=== PATIENT | male | born 1940 | race Caucasian/White ===

== ENCOUNTER → 2017-01-04 | Outpatient (CLI) | payer OTHER ==
[~2017-01-04] MED LIST: ALBU18 IN; AZI250T PO; BENA20TA PO; NOR5T PO; SIMV-8 PO
[2017-01-04 10:13] LABS: Urine Bilirubin Negative (Negative); Urine Blood Negative /uL (Negative); Urine Color Yellow (Yellow); Urine Glucose Normal (Normal); Urine Ketone Negative (Negative); Urine Nitrite Negative (Negative); Urine Urobilinogen Normal (Negative); Urine pH 5.5 (5.0-8.0)
[2017-01-04 10:17] LABS: Basophils # (auto) 0 uL; Basophils % (auto) 0.5 % (0.0-2.0); Eosinophils # (auto) 0.3 uL; Eosinophils % (auto) 3.5 % (0.0-7.0); Hematocrit 50.7 % (41.0-53.0); Hemoglobin 16.8 g/dL (13.5-17.5); Lymphocytes # (auto) 3.1 uL; Lymphocytes % (auto) 34.2 % (10.0-50.0); Mean Corpuscular Hemoglobin 29.2 pg (28.0-32.0); Mean Corpuscular Hgb Conc. 33.2 g/dL (32.0-36.0); Mean Corpuscular Volume 87.7 fL (80.0-100.0); Mean Platelet Volume 8.6 fL (7.4-10.4); Monocytes # (auto) 0.7 uL; Monocytes % (auto) 8.3 % (0.0-12.0); Neutrophils # (auto) 4.8 uL; Neutrophils % (auto) 53.5 % (37.0-80.0); Platelet Count (auto) 273 10^3/uL (140-450); Red Cell Distribution Width 14.6 % (11.6-16.0)
[2017-01-04 10:43] LABS: Albumin 4.1 g/dL (3.4-5.0); BUN/Creatinine Ratio 15.3; Bilirubin, Total 0.4 mg/dL (0.2-1.0); Calcium 9.2 mg/dL (8.5-10.1); Potassium 4.4 mmol/L (3.5-5.1); Total Protein 7.3 g/dL (6.4-8.2)
== END | disposition home or self-care (01) ==
LOC: LAB 09:14
DX: I10 Essential (primary) hypertension (principal); Z12.5 Encounter for screening for malignant neoplasm of prostate; Z86.010 Personal history of colon polyps
CPT/HCPCS: 36415; 80053; 80061; 81003; 82270; 84153; 84443; 85025

== ENCOUNTER → 2017-07-20 | Outpatient (CLI) | payer OTHER ==
[~2017-07-20] MED LIST changes: +HYDR-4663 PO; -NOR5T PO
[2017-07-20 10:03] LABS: Basophils # (auto) 0 uL; Basophils % (auto) 0.5 % (0.0-2.0); Eosinophils # (auto) 0.2 uL; Eosinophils % (auto) 2.7 % (0.0-7.0); Hematocrit 51.7 % (41.0-53.0); Hemoglobin 17.2 g/dL (13.5-17.5); Lymphocytes # (auto) 2.6 uL; Lymphocytes % (auto) 32.4 % (10.0-50.0); Mean Corpuscular Hgb Conc. 33.2 g/dL (32.0-36.0); Mean Corpuscular Volume 90.3 fL (80.0-100.0); Mean Platelet Volume 8.2 fL (6.9-10.8); Monocytes # (auto) 0.6 uL; Monocytes % (auto) 8.1 % (0.0-12.0); Neutrophils # (auto) 4.4 uL; Neutrophils % (auto) 56.3 % (37.0-80.0); Nucleated Red Blood Cells % 0.1 %; Platelet Count (auto) 214 10^3/uL (140-450); Red Cell Distribution Width 14.2 % (11.8-14.3); White Blood Cell 7.9 10^3/uL (4.4-10.8)
[2017-07-20 10:10] LABS: Urine Bilirubin Negative (Negative); Urine Blood Negative /uL (Negative); Urine Color Yellow (Yellow); Urine Glucose Normal (Normal); Urine Ketone Negative (Negative); Urine Nitrite Negative (Negative); Urine RBC <1 /hpf (0 - 3); Urine Urobilinogen Normal (Negative); Urine pH 5.5 (5.0-8.0)
[2017-07-20 10:39] LABS: Albumin 4.3 g/dL (3.4-5.0); BUN/Creatinine Ratio 16.8; Bilirubin, Total 0.8 mg/dL (0.2-1.0); Calcium 9.6 mg/dL (8.5-10.1); Total Protein 7.7 g/dL (6.4-8.2)
[2017-07-20 10:42] LABS: Vitamin B12 631 pg/mL (211-911)
[2017-07-20 10:49] LABS: Temperature: 21.9 C (20.0-25.0)
== END | disposition home or self-care (01) ==
LOC: LAB 09:28
PROVIDERS: ATTEND Nurse Practitioner
DX: I25.10 Atherosclerotic heart disease of native coronary artery without angina pectoris (principal)
CPT/HCPCS: 36415; 80053; 80061; 81001; 82306; 82607; 82746; 83036; 84443; 85025

== ENCOUNTER → 2018-01-24 | Outpatient (CLI) | payer OTHER ==
[~2018-01-24] MED LIST changes: -AZI250T PO; +AZIT250T8 PO; -HYDR-4663 PO; +HYDR-4683 PO
[2018-01-24 10:53] LABS: Basophils # (auto) 0 uL; Basophils % (auto) 0.6 % (0.0-2.0); Eosinophils # (auto) 0.2 uL; Eosinophils % (auto) 3.2 % (0.0-7.0); Hematocrit 52.5 % (41.0-53.0); Hemoglobin 17.6 g/dL (13.5-17.5); Lymphocytes % (auto) 26.2 % (10.0-50.0); Mean Corpuscular Hgb Conc. 33.4 g/dL (32.0-36.0); Mean Corpuscular Volume 89.6 fL (80.0-100.0); Monocytes # (auto) 0.7 uL; Monocytes % (auto) 8.9 % (0.0-12.0); Neutrophils # (auto) 4.7 uL; Neutrophils % (auto) 61.1 % (37.0-80.0); Nucleated Red Blood Cells % 0.1 %; Platelet Count (auto) 216 10^3/uL (140-450); Red Blood Cells 5.86 10^6/uL (4.5-5.90); Red Cell Distribution Width 14.2 % (11.8-14.3); White Blood Cell 7.6 10^3/uL (4.4-10.8)
[2018-01-24 11:04] LABS: Urine Bacteria NONE SEEN /hpf (None Seen); Urine Blood Negative /uL (Negative); Urine Mucus FEW (None Seen); Urine Specific Gravity 1.011 (1.001-1.035); Urine WBC 1 /hpf (0 - 3)
[2018-01-24 11:16] LABS: Albumin 4.3 g/dL (3.4-5.0); BUN/Creatinine Ratio 11.6; Bilirubin, Total 0.7 mg/dL (0.2-1.0); Potassium 4.4 mmol/L (3.5-5.1); Total Protein 7.6 g/dL (6.4-8.2)
== END | disposition home or self-care (01) ==
LOC: LAB 10:09
PROVIDERS: ATTEND Nurse Practitioner
DX: E78.5 Hyperlipidemia, unspecified (principal); I10 Essential (primary) hypertension
CPT/HCPCS: 36415; 80053; 80061; 81001; 83036; 84443; 85025

== ENCOUNTER → 2018-07-19 | Outpatient (CLI) | payer OTHER ==
[2018-07-19 10:56] LABS: Basophils # (auto) 0 uL; Basophils % (auto) 0.5 % (0.0-2.0); Eosinophils # (auto) 0.2 uL; Eosinophils % (auto) 2.9 % (0.0-7.0); Hematocrit 49.3 % (41.0-53.0); Hemoglobin 16.3 g/dL (13.5-17.5); Lymphocytes # (auto) 2.1 uL; Lymphocytes % (auto) 27.9 % (10.0-50.0); Mean Corpuscular Hemoglobin 29.7 pg (28.0-32.0); Mean Corpuscular Volume 90.1 fL (80.0-100.0); Monocytes # (auto) 0.5 uL; Monocytes % (auto) 7.3 % (0.0-12.0); Neutrophils # (auto) 4.5 uL; Neutrophils % (auto) 61.4 % (37.0-80.0); Platelet Count (auto) 222 10^3/uL (140-450); Red Blood Cells 5.47 10^6/uL (4.5-5.90); Red Cell Distribution Width 14.4 % (11.8-14.3); White Blood Cell 7.4 10^3/uL (4.4-10.8)
[2018-07-19 11:17] LABS: BUN/Creatinine Ratio 14.6; Potassium 4.5 mmol/L (3.5-5.1)
[2018-07-19 11:18] LABS: Bilirubin, Total 0.6 mg/dL (0.2-1.0); Total Protein 7.2 g/dL (6.4-8.2)
== END | disposition home or self-care (01) ==
LOC: LAB 10:17
PROVIDERS: ATTEND Nurse Practitioner
DX: R73.03 Prediabetes (principal); I10 Essential (primary) hypertension; E78.5 Hyperlipidemia, unspecified
CPT/HCPCS: 36415; 80053; 80061; 83036; 85025

== ENCOUNTER → 2019-01-23 | Outpatient (CLI) | payer OTHER ==
[2019-01-23 12:07] LABS: Basophils # (auto) 0 uL; Basophils % (auto) 0.6 % (0.0-2.0); Eosinophils # (auto) 0.3 uL; Eosinophils % (auto) 4.8 % (0.0-7.0); Hematocrit 47.5 % (41.0-53.0); Hemoglobin 15.9 g/dL (13.5-17.5); Lymphocytes # (auto) 1.8 uL; Lymphocytes % (auto) 31.7 % (10.0-50.0); Mean Corpuscular Hemoglobin 30.1 pg (28.0-32.0); Mean Corpuscular Hgb Conc. 33.4 g/dL (32.0-36.0); Mean Corpuscular Volume 90.1 fL (80.0-100.0); Monocytes # (auto) 0.5 uL; Monocytes % (auto) 8.7 % (0.0-12.0); Neutrophils # (auto) 3.1 uL; Neutrophils % (auto) 54.2 % (37.0-80.0); Platelet Count (auto) 188 10^3/uL (140-450); Red Blood Cells 5.28 10^6/uL (4.5-5.90); Red Cell Distribution Width 14.7 % (11.8-14.3); White Blood Cell 5.8 10^3/uL (4.4-10.8)
[2019-01-23 12:34] LABS: Potassium 4.2 mmol/L (3.5-5.1)
[2019-01-23 12:58] LABS: Albumin 3.8 g/dL (3.4-5.0); BUN/Creatinine Ratio 11.4; Bilirubin, Total 0.5 mg/dL (0.2-1.0); Calcium 8.6 mg/dL (8.5-10.1); Total Protein 6.6 g/dL (6.4-8.2)
== END | disposition home or self-care (01) ==
LOC: LAB 10:54
PROVIDERS: ATTEND Nurse Practitioner
DX: E78.5 Hyperlipidemia, unspecified (principal); I10 Essential (primary) hypertension
CPT/HCPCS: 36415; 80053; 80061; 83036; 84153; 84443; 85025

== ENCOUNTER → 2019-05-09 | Outpatient (CLI) | payer OTHER ==
[2019-05-09 11:49] LABS: Basophils # (auto) 0.1 uL; Basophils % (auto) 0.8 % (0.0-2.0); Eosinophils # (auto) 0.2 uL; Eosinophils % (auto) 2.3 % (0.0-7.0); Hematocrit 49.6 % (41.0-53.0); Hemoglobin 16.4 g/dL (13.5-17.5); Lymphocytes # (auto) 2.2 uL; Lymphocytes % (auto) 27.6 % (10.0-50.0); Mean Corpuscular Hemoglobin 30.1 pg (28.0-32.0); Mean Corpuscular Hgb Conc. 33.1 g/dL (32.0-36.0); Mean Corpuscular Volume 91.1 fL (80.0-100.0); Monocytes # (auto) 0.7 uL; Monocytes % (auto) 8.5 % (0.0-12.0); Neutrophils # (auto) 4.8 uL; Neutrophils % (auto) 60.8 % (37.0-80.0); Platelet Count (auto) 226 10^3/uL (140-450); Red Blood Cells 5.44 10^6/uL (4.5-5.90); Red Cell Distribution Width 14.4 % (11.8-14.3); White Blood Cell 7.9 10^3/uL (4.4-10.8)
[2019-05-09 12:19] LABS: Potassium 4.6 mmol/L (3.5-5.1)
[2019-05-09 12:28] LABS: Albumin 4.2 g/dL (3.4-5.0); BUN/Creatinine Ratio 15.2; Bilirubin, Total 0.7 mg/dL (0.2-1.0); Calcium 9.2 mg/dL (8.5-10.1); Total Protein 7.4 g/dL (6.4-8.2)
[2019-05-09 12:32] LABS: Urine Bacteria NONE SEEN /hpf (None Seen); Urine Blood Negative /uL (Negative); Urine Specific Gravity 1.012 (1.001-1.035); Urine WBC 1 /hpf (0 - 3)
== END | disposition home or self-care (01) ==
LOC: LAB 11:34
PROVIDERS: ATTEND Nurse Practitioner
DX: E78.5 Hyperlipidemia, unspecified (principal)
CPT/HCPCS: 36415; 80053; 80061; 81001; 82043; 83036; 85025

== ENCOUNTER → 2019-05-16 | Outpatient (CLI) | payer OTHER | END | disposition home or self-care (01) | LOC: LAB 13:26 | PROVIDERS: ATTEND Nurse Practitioner | DX: E78.5 Hyperlipidemia, unspecified (principal); E11.9 Type 2 diabetes mellitus without complications | CPT/HCPCS: 82270 ==

== ENCOUNTER → 2019-08-22 | Outpatient (CLI) | payer OTHER ==
[~2019-08-22] MED LIST changes: -HYDR-4683 PO; +HYDR-4833 PO
[2019-08-22 11:18] LABS: Basophils # (auto) 0 uL; Basophils % (auto) 0.8 % (0.0-2.0); Eosinophils # (auto) 0.2 uL; Eosinophils % (auto) 2.5 % (0.0-7.0); Hematocrit 50.7 % (41.0-53.0); Hemoglobin 16.6 g/dL (13.5-17.5); Lymphocytes # (auto) 1.5 uL; Lymphocytes % (auto) 24.6 % (10.0-50.0); Mean Corpuscular Hemoglobin 29.7 pg (28.0-32.0); Mean Corpuscular Hgb Conc. 32.8 g/dL (32.0-36.0); Mean Corpuscular Volume 90.4 fL (80.0-100.0); Monocytes # (auto) 0.6 uL; Monocytes % (auto) 9.5 % (0.0-12.0); Neutrophils # (auto) 3.7 uL; Neutrophils % (auto) 62.6 % (37.0-80.0); Nucleated Red Blood Cells % 0.2 %; Platelet Count (auto) 203 10^3/uL (140-450); Red Cell Distribution Width 13.8 % (11.8-14.3); Urine Bacteria NONE SEEN /hpf (None Seen); Urine Blood Negative /uL (Negative); Urine Specific Gravity 1.015 (1.001-1.035); Urine WBC <1 /hpf (0 - 3); White Blood Cell 5.9 10^3/uL (4.4-10.8)
[2019-08-22 12:16] LABS: Albumin 4.2 g/dL (3.4-5.0); Calcium 9.6 mg/dL (8.5-10.1); Potassium 4.2 mmol/L (3.5-5.1)
[2019-08-22 12:21] LABS: BUN/Creatinine Ratio 11.6; Bilirubin, Total 0.8 mg/dL (0.2-1.0); Total Protein 7.2 g/dL (6.4-8.2)
== END | disposition home or self-care (01) ==
LOC: LAB 10:41
PROVIDERS: ATTEND Nurse Practitioner
DX: R73.03 Prediabetes (principal)
CPT/HCPCS: 36415; 80053; 81001; 83036; 85025

== ENCOUNTER → 2019-08-22 | Outpatient (CLI) | payer OTHER | END | disposition home or self-care (01) | LOC: XYW 09:32 | PROVIDERS: ATTEND Internal Medicine | DX: R00.2 Palpitations (principal) | CPT/HCPCS: 93306 ==

== ENCOUNTER → 2019-08-28 | Outpatient (CLI) | payer OTHER ==
[~2019-08-28] VITALS: Ht 167.6 cm; Wt 81.6 kg
[~2019-08-28] MED LIST changes: +ADENOSINE 69 MG in GIVE UN-DILUTED 0 ML IV STA
[2019-08-28 09:17] VITALS: BP 177/82
== END | disposition home or self-care (01) ==
LOC: XY 08:22
PROVIDERS: ATTEND Internal Medicine
DX: R00.2 Palpitations (principal); I10 Essential (primary) hypertension; R07.9 Chest pain, unspecified; J45.909 Unspecified asthma, uncomplicated; I47.1 Supraventricular tachycardia
CPT/HCPCS: 78452; 93017; A9500; J0153

== ENCOUNTER → 2020-07-28 | Outpatient (CLI) | payer OTHER ==
[~2020-07-28] MED LIST changes: -ADENOSINE 69 MG in GIVE UN-DILUTED 0 ML IV STA
[2020-07-28 11:21] LABS: Basophils # (auto) 0 10 ^3/uL (0-0.2); Basophils % (auto) 0.6 % (0.0-2.0); Eosinophils # (auto) 0.1 10 ^3/uL (0-0.8); Eosinophils % (auto) 1.5 % (0.0-7.0); Hematocrit 45.9 % (41.0-53.0); Hemoglobin 15.3 g/dL (13.5-17.5); Lymphocytes # (auto) 1.3 10 ^3/uL (0.4-5.4); Lymphocytes % (auto) 18.8 % (10.0-50.0); Mean Corpuscular Hemoglobin 29.4 pg (28.0-32.0); Mean Corpuscular Hgb Conc. 33.4 g/dL (32.0-36.0); Mean Corpuscular Volume 88.1 fL (80.0-100.0); Monocytes # (auto) 0.6 10 ^3/uL (0-1.3); Monocytes % (auto) 8.2 % (0.0-12.0); Neutrophils # (auto) 4.9 10 ^3/uL (1.6-8.6); Neutrophils % (auto) 70.9 % (37.0-80.0); Nucleated Red Blood Cells % 0.1 %; Platelet Count (auto) 214 10^3/uL (140-450); Red Blood Cells 5.21 10^6/uL (4.5-5.90); Red Cell Distribution Width 14.9 % (11.8-14.3); White Blood Cell 6.8 10^3/uL (4.4-10.8)
[2020-07-28 11:51] LABS: Urine Bacteria MOD /hpf (None Seen); Urine Blood TRACE /uL (Negative); Urine Mucus FEW (None Seen); Urine Specific Gravity 1.023 (1.001-1.035); Urine WBC 32 /hpf (0 - 3)
[2020-07-28 12:12] LABS: Potassium 4.5 mmol/L (3.5-5.1)
[2020-07-28 12:39] LABS: Albumin 3.6 g/dL (3.4-5.0); BUN/Creatinine Ratio 14.6; Bilirubin, Total 0.5 mg/dL (0.2-1.0); Calcium 8.9 mg/dL (8.5-10.1); Total Protein 6.8 g/dL (6.4-8.2)
== END | disposition home or self-care (01) ==
LOC: LAB 10:49
PROVIDERS: ATTEND Nurse Practitioner
DX: I10 Essential (primary) hypertension (principal); E78.5 Hyperlipidemia, unspecified
CPT/HCPCS: 36415; 80053; 80061; 81001; 84443; 85025

== ENCOUNTER → 2020-12-31 | Outpatient (CLI) | payer OTHER | END | disposition home or self-care (01) | LOC: XYW 14:16 | PROVIDERS: ATTEND Internal Medicine | DX: I08.8 Other rheumatic multiple valve diseases (principal); I10 Essential (primary) hypertension | CPT/HCPCS: 93306 ==

== ENCOUNTER → 2021-01-06 | Outpatient (CLI) | payer OTHER | END | disposition home or self-care (01) | LOC: XY 09:40 | PROVIDERS: ATTEND Internal Medicine | DX: I65.23 Occlusion and stenosis of bilateral carotid arteries (principal); R42 Dizziness and giddiness | CPT/HCPCS: 93886 ==

== ENCOUNTER → 2021-02-10 | Outpatient (CLI) | payer OTHER | END | disposition home or self-care (01) | LOC: XYW 09:10 | PROVIDERS: ATTEND Student in an Organized Health Care Education/Training Program | DX: I70.203 Unspecified atherosclerosis of native arteries of extremities, bilateral legs (principal); R29.898 Other symptoms and signs involving the musculoskeletal system | CPT/HCPCS: 93925 ==

== ENCOUNTER 2021-02-16 08:14 | Emergency (ER) | payer OTHER ==
[~2021-02-16] VITALS: Ht 170.2 cm; Wt 70.3 kg
[2021-02-16] MEDS ORDERED: SODIUM CHLORIDE 0.9% 1,000 ML IV ONE (08:45)
[2021-02-16 09:22] VITALS: BP 141/66
[2021-02-16 09:32] LABS: Basophils # (auto) 0 10 ^3/uL (0-0.2); Basophils % (auto) 0.2 % (0.0-2.0); Eosinophils # (auto) 0 10 ^3/uL (0-0.8); Eosinophils % (auto) 0.5 % (0.0-7.0); Hemoglobin 14.7 g/dL (13.5-17.5); Lymphocytes % (auto) 11.3 % (10.0-50.0); Mean Corpuscular Hemoglobin 28.4 pg (28.0-32.0); Mean Corpuscular Hgb Conc. 33.4 g/dL (32.0-36.0); Monocytes # (auto) 0.7 10 ^3/uL (0-1.3); Monocytes % (auto) 8.2 % (0.0-12.0); Neutrophils # (auto) 7.2 10 ^3/uL (1.6-8.6); Neutrophils % (auto) 79.8 % (37.0-80.0); Platelet Count (auto) 271 10^3/uL (140-450); Red Blood Cells 5.17 10^6/uL (4.5-5.90); Red Cell Distribution Width 14.8 % (11.8-14.3)
[2021-02-16 09:44] LABS: Albumin 2.8 g/dL (3.4-5.0); Anion Gap 9 (5-15); Blood Urea Nitrogen 29 mg/dL (7-18); Calcium 8.7 mg/dL (8.5-10.1); Carbon Dioxide 25 mmol/L (21-32); Chloride 106 mmol/L (98-107); Glucose 103 mg/dL (74-106); Potassium 3.4 mmol/L (3.5-5.1); Sodium 140 mmol/L (136-145)
[2021-02-16 09:50] LABS: Alanine Aminotransferase 95 U/L (16-61); Alkaline Phosphatase 90 U/L (45-117); Aspartate Aminotransferase 69 U/L (15-37); BUN/Creatinine Ratio 24.2; Bilirubin, Total 0.7 mg/dL (0.2-1.0); GFR African American 75 mL/min; GFR Non-African American 62 mL/min; Total Protein 6.1 g/dL (6.4-8.2)
[2021-02-16] MEDS ORDERED: levoFLOXacin 250 MG TAB PO ONE (10:30)
[2021-02-16 10:44] LABS: Urine Bacteria NONE SEEN /hpf (None Seen); Urine Blood Negative /uL (Negative); Urine Specific Gravity 1.013 (1.001-1.035); Urine WBC 1 /hpf (0 - 3)
[2021-02-16] MEDS ORDERED: HYDROcodone-ACET 10/325MG TAB PO ONE (10:45)
== END 2021-02-16 10:59 | disposition home or self-care (01) ==
LOC: EDBD 08:14 → ER 08:14
DX: J18.9 Pneumonia, unspecified organism (principal); I48.91 Unspecified atrial fibrillation; M25.551 Pain in right hip; R53.1 Weakness; E44.0 Moderate protein-calorie malnutrition; I10 Essential (primary) hypertension; E86.0 Dehydration; Z68.24 Body mass index [BMI] 24.0-24.9, adult; Z88.0 Allergy status to penicillin; Z79.899 Other long term (current) drug therapy; Z90.89 Acquired absence of other organs
CPT/HCPCS: 36415; 71045; 72192; 80053; 81001; 84484; 85025; 93005; 96360; 99285; J7030

== ENCOUNTER 2021-02-19 09:33 | Emergency (ER) | payer OTHER ==
[~2021-02-19] VITALS: Ht 167.6 cm; Wt 65.3 kg
[2021-02-19] MEDS ORDERED: CYCLOBENZAPRINE HCL 10 MG TAB PO ONE (10:00)
[2021-02-19 11:18] VITALS: BP 140/62
== END 2021-02-19 11:25 | disposition home or self-care (01) ==
LOC: ER 09:33
DX: S83.91XA Sprain of unspecified site of right knee, initial encounter (principal); I10 Essential (primary) hypertension; Z88.0 Allergy status to penicillin; Z87.891 Personal history of nicotine dependence; W01.0XXA Fall on same level from slipping, tripping and stumbling without subsequent striking against object, initial encounter; Y93.89 Activity, other specified; Y92.89 Other specified places as the place of occurrence of the external cause; Y99.8 Other external cause status
CPT/HCPCS: 29505; 73700; 93005

== ENCOUNTER 2021-03-02 12:48 | Inpatient (IN) | payer OTHER ==
[~2021-03-02] VITALS: Ht 167.6 cm; Wt 68.7 kg
[~2021-03-02 12:48] MED LIST changes: -AZIT250T8 PO
[2021-03-02] MEDS ORDERED: methylPREDNISolone SOD SUCC 125 MG/2 ML VL IV ONE (13:00)
[2021-03-02] MEDS ORDERED: FUROSEMIDE 20 MG/2 ML VIAL IV ONE (13:00)
[2021-03-02] MEDS ORDERED: MAGNESIUM SULFATE 1GM/100ML 100 ML IV ONE (13:00)
[2021-03-02 13:59] LABS: Basophils # (auto) 0 10 ^3/uL (0-0.2); Basophils % (auto) 0.3 % (0.0-2.0); Eosinophils # (auto) 0 10 ^3/uL (0-0.8); Eosinophils % (auto) 0.2 % (0.0-7.0); Hematocrit 36.7 % (41.0-53.0); Hemoglobin 11.9 g/dL (13.5-17.5); Lymphocytes # (auto) 0.7 10 ^3/uL (0.4-5.4); Lymphocytes % (auto) 5.3 % (10.0-50.0); Mean Corpuscular Hemoglobin 27.5 pg (28.0-32.0); Mean Corpuscular Hgb Conc. 32.5 g/dL (32.0-36.0); Mean Corpuscular Volume 84.6 fL (80.0-100.0); Monocytes # (auto) 0.8 10 ^3/uL (0-1.3); Monocytes % (auto) 5.4 % (0.0-12.0); Neutrophils # (auto) 12.6 10 ^3/uL (1.6-8.6); Neutrophils % (auto) 88.8 % (37.0-80.0); Platelet Count (auto) 378 10^3/uL (140-450); Red Blood Cells 4.34 10^6/uL (4.5-5.90); Red Cell Distribution Width 15.4 % (11.8-14.3); White Blood Cell 14.1 10^3/uL (4.4-10.8)
[2021-03-02 14:08] LABS: INR 1.12 (0.9-1.15); Partial Thromboplastin Time 26.5 sec (23.0-31.2)
[2021-03-02 14:16] LABS: Anion Gap 8 (5-15); Blood Urea Nitrogen 31 mg/dL (7-18); Calcium 8.1 mg/dL (8.5-10.1); Carbon Dioxide 26 mmol/L (21-32); Chloride 109 mmol/L (98-107); Glucose 108 mg/dL (74-106); Potassium 3.4 mmol/L (3.5-5.1); Sodium 143 mmol/L (136-145)
[2021-03-02 14:22] LABS: Alanine Aminotransferase 55 U/L (16-61); Alkaline Phosphatase 117 U/L (45-117); Aspartate Aminotransferase 72 U/L (15-37); BUN/Creatinine Ratio 24.4; GFR African American 71 mL/min; GFR Non-African American 58 mL/min; Total Protein 5.2 g/dL (6.4-8.2)
[2021-03-02 16:42] LABS: Urine Bacteria NONE SEEN /hpf (None Seen); Urine Blood Negative /uL (Negative); Urine Specific Gravity 1.012 (1.001-1.035); Urine WBC <1 /hpf (0 - 3)
[2021-03-02] MEDS ORDERED: MORPHINE SULF INJ 2 MG/ML SYRINGE 1ML IV PRN (17:30)
[2021-03-02] MEDS ORDERED: NITROGLYCERIN 0.4 MG SL TAB SL PRN (17:30)
[2021-03-02] MEDS ORDERED: ALBUMIN 25% 100 ML IV ONE (19:45)
[2021-03-02] MEDS ORDERED: FUROSEMIDE 40 MG/4 ML VIAL IV ONE (19:45)
[2021-03-02] MEDS ORDERED: VANCOMYCIN PER PHARMACY 0 MG IV SCH (19:45)
[2021-03-02] MEDS ORDERED: PIPERACILLIN-TAZOB 3.375GM 100 ML IV ONE (19:45)
[2021-03-02] MEDS ORDERED: POTASSIUM CHL 20 Meq TABLET PO ONE (19:45)
[2021-03-02] MEDS ORDERED: MEROPENEM 1GM IVPB 100 ML IV SCH (21:00)
[2021-03-02] MEDS ORDERED: VANCOMYCIN 1GM/250ML 250 ML IV ONE (21:15)
[2021-03-02 21:42] VITALS: BP 149/64
[2021-03-02 21:47] VITALS: BP 149/64
[2021-03-03] MEDS ORDERED: PIPERACILLIN-TAZOB 3.375GM 100 ML IV SCH
[2021-03-03] MEDS ORDERED: ONDANSETRON HCL 4 MG/2 ML VIAL IV PRN (01:15)
[2021-03-03] MEDS ORDERED: HYDROcodone-ACET 5/325MG TAB PO PRN (01:15)
[2021-03-03] MEDS ORDERED: LORazepam 0.5 MG TAB PO PRN (01:15)
[2021-03-03] MEDS ORDERED: DOCUSATE SOD 100 MG CAP PO PRN (01:15)
[2021-03-03] MEDS ORDERED: NITROGLYCERIN 0.4 MG SL TAB SL PRN (01:15)
[2021-03-03] MEDS ORDERED: MORPHINE SULF INJ 2 MG/ML SYRINGE 1ML IV PRN ×2 (01:15)
[2021-03-03] MEDS ORDERED: ALUM & MAG HYDROX-SIMETH LIQ(MAALOX) 30 ML PO PRN (01:15)
[2021-03-03] MEDS ORDERED: ACETAMINOPHEN 325 MG TAB PO PRN (01:15)
[2021-03-03] MEDS: IPRATROPIUM BROM 0.5 MG/2.5ML INH SOL NEB SCH ×6 (02:00→22:37)
[2021-03-03 02:51] LABS: Albumin 2.3 g/dL (3.4-5.0); Anion Gap 9 (5-15); Blood Urea Nitrogen 34 mg/dL (7-18); Calcium 7.8 mg/dL (8.5-10.1); Carbon Dioxide 26 mmol/L (21-32); Chloride 107 mmol/L (98-107); Glucose 177 mg/dL (74-106); Magnesium 2.1 mg/dL (1.6-2.6); Potassium 3.3 mmol/L (3.5-5.1); Sodium 142 mmol/L (136-145)
[2021-03-03 02:53] LABS: Alanine Aminotransferase 48 U/L (16-61); Aspartate Aminotransferase 54 U/L (15-37); BUN/Creatinine Ratio 27.2; GFR African American 72 mL/min; GFR Non-African American 59 mL/min
[2021-03-03 02:58] LABS: Alkaline Phosphatase 99 U/L (45-117); Total Protein 5.2 g/dL (6.4-8.2)
[2021-03-03 03:15] LABS: Cholesterol 110 mg/dL (< 200); Triglycerides 150 mg/dL (< 150)
[2021-03-03 03:18] LABS: HDL Cholesterol 12 mg/dL (40-59); LDL Cholesterol 66 mg/dL (< 100)
[2021-03-03 05:00] VITALS: BP 122/58
[2021-03-03] MEDS: SODIUM CHLOR 0.9% PF (SALINE LOCK) 10ML VIAL/SYR IV SCH ×3 (05:30→21:19)
[2021-03-03] MEDS: FUROSEMIDE 20 MG/2 ML VIAL IV SCH ×2 (05:31→17:21)
[2021-03-03] MEDS: methylPREDNISolone SOD SUCC 40 MG/ML VL IV SCH ×3 (05:31→22:22)
[2021-03-03 06:23] LABS: INR 1.09 (0.9-1.15); Partial Thromboplastin Time 29.3 sec (23.0-31.2)
[2021-03-03] MEDS: POTASSIUM CHL 20 Meq TABLET PO SCH (09:15)
[2021-03-03 09:16] VITALS: BP 127/60
[2021-03-03] MEDS: METOPROLOL SUCCINATE XL 50 MG TAB PO SCH (09:16)
[2021-03-03] MEDS: BENAZEPRIL HCL 10 MG TAB PO SCH (09:16)
[2021-03-03] MEDS: ENOXAPARIN SOD 40 MG/0.4 ML SYRINGE SC SCH (09:16)
[2021-03-03] MEDS ORDERED: DOXYCYCLINE 100MG/250ML 250 ML IV SCH (10:00)
[2021-03-03 10:36] LABS: Basophils # (auto) 0 10 ^3/uL (0-0.2); Basophils % (auto) 0.2 % (0.0-2.0); Eosinophils # (auto) 0 10 ^3/uL (0-0.8); Eosinophils % (auto) 0.1 % (0.0-7.0); Hematocrit 34.8 % (41.0-53.0); Hemoglobin 11.2 g/dL (13.5-17.5); Lymphocytes # (auto) 0.6 10 ^3/uL (0.4-5.4); Lymphocytes % (auto) 6.4 % (10.0-50.0); Mean Corpuscular Hemoglobin 27.5 pg (28.0-32.0); Mean Corpuscular Hgb Conc. 32.2 g/dL (32.0-36.0); Mean Corpuscular Volume 85.4 fL (80.0-100.0); Monocytes # (auto) 0.3 10 ^3/uL (0-1.3); Monocytes % (auto) 3.5 % (0.0-12.0); Neutrophils # (auto) 8.2 10 ^3/uL (1.6-8.6); Neutrophils % (auto) 89.8 % (37.0-80.0); Nucleated Red Blood Cells % 0.1 %; Platelet Count (auto) 344 10^3/uL (140-450); Red Blood Cells 4.07 10^6/uL (4.5-5.90); Red Cell Distribution Width 15.9 % (11.8-14.3); White Blood Cell 9.1 10^3/uL (4.4-10.8)
[2021-03-03] MEDS ORDERED: VANCOMYCIN PER PHARMACY 0 MG IV SCH (12:15)
[2021-03-03 12:56] VITALS: BP 112/55
[2021-03-03 14:08] VITALS: BP 112/53
[2021-03-03] MEDS ORDERED: LISI-716 PO (14:17)
[2021-03-03] MEDS ORDERED: METO-289 PO (14:18)
[2021-03-03] MEDS ORDERED: ERGO1CAP12 PO (14:18)
[2021-03-03] MEDS ORDERED: ASCO500T11 PO (14:19)
[2021-03-03] MEDS ORDERED: CYCL-614 PO (14:19)
[2021-03-03] MEDS ORDERED: LEVO-28 PO (14:20)
[2021-03-03] MEDS ORDERED: GLYC1TAB18 PO (14:27)
[2021-03-03] MEDS ORDERED: AMIO200T33 PO (15:23)
[2021-03-03] MEDS ORDERED: LISI20TA28 PO (15:28)
[2021-03-03 16:54] VITALS: BP 123/57
[2021-03-03] MEDS ORDERED: VANCOMYCIN 1GM/250ML 250 ML IV SCH (18:00)
[2021-03-03 22:00] VITALS: BP 127/55
[2021-03-03] MEDS: MEROPENEM 1GM IVPB 100 ML IV SCH (22:21)
[2021-03-03] MEDS: ATORVASTATIN 20 MG TAB PO SCH (22:23)
[2021-03-04] MEDS: IPRATROPIUM BROM 0.5 MG/2.5ML INH SOL NEB SCH ×6 (02:18→22:12)
[2021-03-04 05:00] VITALS: BP 107/47
[2021-03-04 05:35] LABS: Basophils # (auto) 0 10 ^3/uL (0-0.2); Basophils % (auto) 0.1 % (0.0-2.0); Eosinophils # (auto) 0 10 ^3/uL (0-0.8); Hematocrit 35.7 % (41.0-53.0); Hemoglobin 11.5 g/dL (13.5-17.5); Lymphocytes # (auto) 0.6 10 ^3/uL (0.4-5.4); Lymphocytes % (auto) 3.7 % (10.0-50.0); Mean Corpuscular Hemoglobin 27.4 pg (28.0-32.0); Mean Corpuscular Hgb Conc. 32.3 g/dL (32.0-36.0); Mean Corpuscular Volume 84.9 fL (80.0-100.0); Monocytes # (auto) 0.6 10 ^3/uL (0-1.3); Monocytes % (auto) 3.8 % (0.0-12.0); Neutrophils # (auto) 14.5 10 ^3/uL (1.6-8.6); Neutrophils % (auto) 92.4 % (37.0-80.0); Nucleated Red Blood Cells % 0.1 %; Platelet Count (auto) 425 10^3/uL (140-450); Red Blood Cells 4.21 10^6/uL (4.5-5.90); Red Cell Distribution Width 15.3 % (11.8-14.3); White Blood Cell 15.8 10^3/uL (4.4-10.8)
[2021-03-04 05:53] LABS: Calcium 7.7 mg/dL (8.5-10.1); Magnesium 2.5 mg/dL (1.6-2.6)
[2021-03-04 06:02] LABS: BUN/Creatinine Ratio 36.4; CRP High Sensitivity 9.97 mg/dL (< 0.3)
[2021-03-04] MEDS: SODIUM CHLOR 0.9% PF (SALINE LOCK) 10ML VIAL/SYR IV SCH ×3 (06:06→21:51)
[2021-03-04] MEDS: FUROSEMIDE 20 MG/2 ML VIAL IV SCH ×2 (06:06→17:08)
[2021-03-04] MEDS: methylPREDNISolone SOD SUCC 40 MG/ML VL IV SCH ×3 (06:07→21:51)
[2021-03-04 08:20] VITALS: BP 107/47
[2021-03-04 08:52] VITALS: BP 112/53
[2021-03-04] MEDS: MEROPENEM 1GM IVPB 100 ML IV SCH ×2 (09:01→21:50)
[2021-03-04] MEDS: BENAZEPRIL HCL 10 MG TAB PO SCH (09:29)
[2021-03-04] MEDS: POTASSIUM CHL 20 Meq TABLET PO SCH (09:29)
[2021-03-04] MEDS: METOPROLOL SUCCINATE XL 50 MG TAB PO SCH (09:29)
[2021-03-04] MEDS: ENOXAPARIN SOD 40 MG/0.4 ML SYRINGE SC SCH (09:30)
[2021-03-04] MEDS ORDERED: EPINEPHrine HCL 1 MG/1 ML AMP ONE ×2 (10:34→10:40)
[2021-03-04] MEDS ORDERED: SODIUM CHLORIDE LOCK 30 ML ONE (10:34)
[2021-03-04] MEDS ORDERED: LIDOCAINE 2%HCL (LOCAL ANESTH.) INJ 20ML MDV ONE (10:34)
[2021-03-04] MEDS ORDERED: diphenhdrAMINE HCL 50 MG/1 ML VL ONE (10:35)
[2021-03-04] MEDS ORDERED: LIDOCAINE HCL 2% TOP JELLY 5ML TOP ONE (10:35)
[2021-03-04] MEDS ORDERED: LIDOCAINE HCL 2 % INJ 2ML MPF NEB ONE (11:15)
[2021-03-04] MEDS: fentaNYL CITRATE 100 MCG/2 ML VL ONE ×2 (12:37→12:40)
[2021-03-04] MEDS: MIDAZOLAM HCL 5 MG/ML-1ML VIAL ONE ×2 (12:37→12:40)
[2021-03-04] MEDS ORDERED: TRAZ50TA2 PO (12:39)
[2021-03-04] MEDS ORDERED: PRED1PAK8 PO (12:39)
[2021-03-04 12:53] VITALS: BP 112/57
[2021-03-04] MEDS: VANCOMYCIN 1GM/250ML 250 ML IV SCH (14:50)
[2021-03-04 16:56] VITALS: BP 117/53
[2021-03-04 21:45] VITALS: BP 123/56
[2021-03-04] MEDS: ATORVASTATIN 20 MG TAB PO SCH (21:51)
[2021-03-05] MEDS: IPRATROPIUM BROM 0.5 MG/2.5ML INH SOL NEB SCH ×6 (01:57→22:47)
[2021-03-05 05:21] VITALS: BP 114/52
[2021-03-05] MEDS: SODIUM CHLOR 0.9% PF (SALINE LOCK) 10ML VIAL/SYR IV SCH ×3 (06:02→21:45)
[2021-03-05] MEDS: FUROSEMIDE 20 MG/2 ML VIAL IV SCH (06:02)
[2021-03-05] MEDS: methylPREDNISolone SOD SUCC 40 MG/ML VL IV SCH ×3 (06:03→21:45)
[2021-03-05 06:45] LABS: Basophils # (auto) 0 10 ^3/uL (0-0.2); Basophils % (auto) 0.2 % (0.0-2.0); Eosinophils # (auto) 0 10 ^3/uL (0-0.8); Hematocrit 34.3 % (41.0-53.0); Hemoglobin 11.3 g/dL (13.5-17.5); Lymphocytes # (auto) 0.5 10 ^3/uL (0.4-5.4); Lymphocytes % (auto) 3.1 % (10.0-50.0); Mean Corpuscular Hemoglobin 27.8 pg (28.0-32.0); Mean Corpuscular Volume 84.4 fL (80.0-100.0); Monocytes # (auto) 0.9 10 ^3/uL (0-1.3); Neutrophils % (auto) 91.7 % (37.0-80.0); Platelet Count (auto) 393 10^3/uL (140-450); Red Blood Cells 4.06 10^6/uL (4.5-5.90); Red Cell Distribution Width 15.7 % (11.8-14.3); White Blood Cell 17.5 10^3/uL (4.4-10.8)
[2021-03-05 07:02] LABS: Calcium 7.9 mg/dL (8.5-10.1); Potassium 3.9 mmol/L (3.5-5.1)
[2021-03-05 07:05] LABS: BUN/Creatinine Ratio 40.6
[2021-03-05 09:00] VITALS: BP 139/56
[2021-03-05] MEDS: VANCOMYCIN 1GM/250ML 250 ML IV SCH (10:37)
[2021-03-05] MEDS: POTASSIUM CHL 20 Meq TABLET PO SCH (10:38)
[2021-03-05] MEDS: BENAZEPRIL HCL 10 MG TAB PO SCH (10:38)
[2021-03-05] MEDS: ENOXAPARIN SOD 40 MG/0.4 ML SYRINGE SC SCH (10:39)
[2021-03-05] MEDS: METOPROLOL SUCCINATE XL 50 MG TAB PO SCH (10:39)
[2021-03-05] MEDS: MEROPENEM 1GM IVPB 100 ML IV SCH ×2 (11:59→21:45)
[2021-03-05 13:00] VITALS: BP 132/58
[2021-03-05 16:58] VITALS: BP 128/60
[2021-03-05 17:00] LABS: BUN/Creatinine Ratio 39.8; Calcium 7.7 mg/dL (8.5-10.1); Potassium 4.2 mmol/L (3.5-5.1)
[2021-03-05] MEDS: ATORVASTATIN 20 MG TAB PO SCH (21:46)
[2021-03-05 22:31] VITALS: BP 125/57
[2021-03-06] MEDS: IPRATROPIUM BROM 0.5 MG/2.5ML INH SOL NEB SCH ×3 (02:28→11:28)
[2021-03-06] MEDS: VANCOMYCIN 1GM/250ML 250 ML IV SCH (02:58)
[2021-03-06 05:12] VITALS: BP 122/53
[2021-03-06] MEDS: methylPREDNISolone SOD SUCC 40 MG/ML VL IV SCH (06:03)
[2021-03-06] MEDS: SODIUM CHLOR 0.9% PF (SALINE LOCK) 10ML VIAL/SYR IV SCH ×2 (06:03→14:11)
[2021-03-06 09:00] VITALS: BP 127/55
[2021-03-06] MEDS: MEROPENEM 1GM IVPB 100 ML IV SCH (09:37)
[2021-03-06] MEDS: POTASSIUM CHL 20 Meq TABLET PO SCH (09:37)
[2021-03-06] MEDS: METOPROLOL SUCCINATE XL 50 MG TAB PO SCH (09:38)
[2021-03-06] MEDS: BENAZEPRIL HCL 10 MG TAB PO SCH (09:38)
[2021-03-06] MEDS: ENOXAPARIN SOD 40 MG/0.4 ML SYRINGE SC SCH (09:39)
[2021-03-06] MEDS ORDERED: ENOXAPARIN SOD 40 MG/0.4 ML SYRINGE SC SCH (10:00)
[2021-03-06] MEDS ORDERED: FUROSEMIDE 20 MG/2 ML VIAL IV ONE (10:15)
[2021-03-06] MEDS: FLUCONAZOLE 200MG/100ML 100 ML IV SCH ×2 (11:42→12:40)
[2021-03-06 13:00] VITALS: BP 125/60
[2021-03-06 16:34] VITALS: BP 122/62
[2021-03-06 16:52] VITALS: BP 122/62
[2021-03-06 17:00] VITALS: BP 129/63
== END 2021-03-06 17:20 | disposition hospice, home (50) | DRG 871 ==
LOC: ER 12:48 → TELE 17:18 → TELE-WESTW 21:42
PROVIDERS: ADMIT Hospitalist; ATTEND Internal Medicine
PROC: 0B988ZZ Drainage of Left Upper Lobe Bronchus, Via Natural or Artificial Opening Endoscopic (ICD-10-PCS; 2021-03-04)
PROC: 0B958ZZ Drainage of Right Middle Lobe Bronchus, Via Natural or Artificial Opening Endoscopic (ICD-10-PCS; principal; 2021-03-04 12:15)
DX: A41.9 Sepsis, unspecified organism (principal); J12.9 Viral pneumonia, unspecified; J96.01 Acute respiratory failure with hypoxia; E43 Unspecified severe protein-calorie malnutrition; I50.43 Acute on chronic combined systolic (congestive) and diastolic (congestive) heart failure; J15.6 Pneumonia due to other Gram-negative bacteria; J44.0 Chronic obstructive pulmonary disease with (acute) lower respiratory infection; N17.9 Acute kidney failure, unspecified; I11.0 Hypertensive heart disease with heart failure; E87.6 Hypokalemia; I48.0 Paroxysmal atrial fibrillation; M62.84 Sarcopenia; Z66 Do not resuscitate; M54.5 Low back pain; M54.10 Radiculopathy, site unspecified; E78.5 Hyperlipidemia, unspecified; T46.2X5A Adverse effect of other antidysrhythmic drugs, initial encounter; M48.00 Spinal stenosis, site unspecified; Z20.822 Contact with and (suspected) exposure to COVID-19; H91.90 Unspecified hearing loss, unspecified ear; G89.29 Other chronic pain; Z87.891 Personal history of nicotine dependence; Z82.49 Family history of ischemic heart disease and other diseases of the circulatory system; Z80.9 Family history of malignant neoplasm, unspecified; Z90.49 Acquired absence of other specified parts of digestive tract; Y92.89 Other specified places as the place of occurrence of the external cause; Z88.0 Allergy status to penicillin
CPT/HCPCS: 36415; 36600; 70486; 71045; 71250; 80048; 80053; 80061; 80202; 81001; 82306; 82805; 83036; 83735; 83880; 84100; 84443; 84484; 85025; 85610; 85730; 86141; 86738; 87040; 87070; 87077; 87081; 87086; 87205; 87278; 87426; 87804; 93005; 93970; 94640; 96365; 96367; 96375; 97163; G0378; J0171; J1450; J2185; J2250; J3490; P9047

== ENCOUNTER 2021-03-11 08:32 | Inpatient (IN) | payer OTHER ==
[~2021-03-11] VITALS: Ht 167.6 cm; Wt 68.0 kg
[~2021-03-11 08:32] MED LIST changes: -ALBU18 IN; +AMIO200T33 PO; +ASCO500T11 PO; -BENA20TA PO; +CYCL-614 PO; +ERGO1CAP12 PO; +GLYC1TAB18 PO; -HYDR-4833 PO; +LEVO-28 PO; +LISI20TA28 PO; +METO-289 PO; +PRED1PAK8 PO; +TRAZ50TA2 PO
[2021-03-11 13:00] VITALS: BP 113/51
[2021-03-11] MEDS ORDERED: levoFLOXacin 500MG 100 ML IV ONE (13:45)
[2021-03-11] MEDS ORDERED: NITROGLYCERIN 0.4 MG SL TAB SL PRN (13:45)
[2021-03-11] MEDS ORDERED: MORPHINE SULF INJ 2 MG/ML SYRINGE 1ML IV PRN (13:45)
[2021-03-11] MEDS ORDERED: HYDROcodone-ACET 5/325MG TAB PO PRN (14:00)
[2021-03-11] MEDS: SODIUM CHLORIDE 0.9% 1,000 ML IV SCH (14:00)
[2021-03-11 15:26] LABS: Basophils # (auto) 0 10 ^3/uL (0-0.2); Basophils % (auto) 0.2 % (0.0-2.0); Eosinophils # (auto) 0 10 ^3/uL (0-0.8); Hematocrit 31.8 % (41.0-53.0); Hemoglobin 10.9 g/dL (13.5-17.5); Lymphocytes # (auto) 0.6 10 ^3/uL (0.4-5.4); Lymphocytes % (auto) 5.1 % (10.0-50.0); Mean Corpuscular Hemoglobin 28.9 pg (28.0-32.0); Mean Corpuscular Hgb Conc. 34.2 g/dL (32.0-36.0); Mean Corpuscular Volume 84.7 fL (80.0-100.0); Monocytes # (auto) 0.7 10 ^3/uL (0-1.3); Monocytes % (auto) 5.9 % (0.0-12.0); Neutrophils # (auto) 10.2 10 ^3/uL (1.6-8.6); Neutrophils % (auto) 88.8 % (37.0-80.0); Platelet Count (auto) 247 10^3/uL (140-450); Red Blood Cells 3.75 10^6/uL (4.5-5.90); Red Cell Distribution Width 15.6 % (11.8-14.3); White Blood Cell 11.5 10^3/uL (4.4-10.8)
[2021-03-11 15:42] LABS: Albumin 1.7 g/dL (3.4-5.0); Calcium 7.9 mg/dL (8.5-10.1); INR 1.13 (0.9-1.15); Partial Thromboplastin Time 26.4 sec (23.0-31.2); Potassium 4.5 mmol/L (3.5-5.1)
[2021-03-11 15:46] LABS: BUN/Creatinine Ratio 40.6; Bilirubin, Total 0.8 mg/dL (0.2-1.0); Total Protein 4.6 g/dL (6.4-8.2)
[2021-03-11] MEDS ORDERED: MICAFUNGIN SODIUM 100 MG in SODIUM CHL 0.9% 100 ML IV ONE (16:00)
[2021-03-11 17:00] VITALS: BP 110/63
[2021-03-11] MEDS: Ensure HIGH Protein Chocolate 8oz Bottle PO SCH (17:50)
[2021-03-11 20:00] VITALS: BP 107/52
[2021-03-11] MEDS: VORICONAZOLE INJ 200 MG in D5W 5% 250 ML IV SCH (21:28)
[2021-03-11 22:01] VITALS: BP 107/52
[2021-03-11 23:08] LABS: Urine Bacteria FEW /hpf (None Seen); Urine Blood 2+ /uL (Negative); Urine Specific Gravity 1.015 (1.001-1.035); Urine WBC 2 /hpf (0 - 3)
[2021-03-12 04:40] VITALS: BP 124/52
[2021-03-12] MEDS: SODIUM CHLORIDE 0.9% 1,000 ML IV SCH (06:34)
[2021-03-12] MEDS: VORICONAZOLE INJ 200 MG in D5W 5% 250 ML IV SCH (08:00)
[2021-03-12] MEDS: Ensure HIGH Protein Chocolate 8oz Bottle PO SCH ×3 (08:00→18:29)
[2021-03-12 08:57] LABS: Basophils # (auto) 0 10 ^3/uL (0-0.2); Basophils % (auto) 0.1 % (0.0-2.0); Eosinophils # (auto) 0 10 ^3/uL (0-0.8); Eosinophils % (auto) 0.3 % (0.0-7.0); Hematocrit 33.5 % (41.0-53.0); Hemoglobin 11.1 g/dL (13.5-17.5); Lymphocytes # (auto) 0.5 10 ^3/uL (0.4-5.4); Lymphocytes % (auto) 4.6 % (10.0-50.0); Mean Corpuscular Hemoglobin 28.6 pg (28.0-32.0); Mean Corpuscular Volume 86.6 fL (80.0-100.0); Monocytes # (auto) 0.4 10 ^3/uL (0-1.3); Monocytes % (auto) 3.8 % (0.0-12.0); Neutrophils % (auto) 91.2 % (37.0-80.0); Platelet Count (auto) 222 10^3/uL (140-450); Red Blood Cells 3.87 10^6/uL (4.5-5.90); Red Cell Distribution Width 15.8 % (11.8-14.3)
[2021-03-12 09:00] VITALS: BP 114/48
[2021-03-12 09:18] LABS: BUN/Creatinine Ratio 41.5; Calcium 7.8 mg/dL (8.5-10.1)
[2021-03-12] MEDS: MICAFUNGIN SODIUM 100 MG in SODIUM CHL 0.9% 100 ML IV SCH (10:19)
[2021-03-12] MEDS: ASPirin 81 mg TAB PO SCH (10:19)
[2021-03-12] MEDS: SALINE 0.65 % NASAL SPRAY 45ML BOTTLE EACHNOSTRI SCH ×3 (12:30→21:30)
[2021-03-12] MEDS: NYSTATIN (MOUTH-THROAT) 500,000 UNITS/5 ML SUSP MT SCH ×3 (12:30→21:30)
[2021-03-12 13:00] VITALS: BP 117/57
[2021-03-12] MEDS: levoFLOXacin 500MG 100 ML IV SCH (14:08)
[2021-03-12 15:22] LABS: Calcium 7.7 mg/dL (8.5-10.1); Potassium 4.4 mmol/L (3.5-5.1)
[2021-03-12 17:00] VITALS: BP 111/48
[2021-03-12] MEDS: VORICONAZOLE 50 MG TAB PO SCH (21:30)
[2021-03-12 23:04] VITALS: BP 122/53
[2021-03-13] VITALS (7 sets, daily range): BP systolic 110–139; BP diastolic 53–76
[2021-03-13] MEDS: SODIUM CHLORIDE 0.9% 1,000 ML IV SCH ×2 (01:25→15:45)
[2021-03-13 05:16] LABS: Basophils # (auto) 0 10 ^3/uL (0-0.2); Basophils % (auto) 0.3 % (0.0-2.0); Eosinophils # (auto) 0.1 10 ^3/uL (0-0.8); Eosinophils % (auto) 0.9 % (0.0-7.0); Hemoglobin 9.9 g/dL (13.5-17.5); Lymphocytes # (auto) 0.5 10 ^3/uL (0.4-5.4); Lymphocytes % (auto) 5.2 % (10.0-50.0); Mean Corpuscular Hemoglobin 28.3 pg (28.0-32.0); Mean Corpuscular Hgb Conc. 34.2 g/dL (32.0-36.0); Mean Corpuscular Volume 82.9 fL (80.0-100.0); Monocytes # (auto) 0.3 10 ^3/uL (0-1.3); Monocytes % (auto) 3.7 % (0.0-12.0); Neutrophils # (auto) 8.5 10 ^3/uL (1.6-8.6); Neutrophils % (auto) 89.9 % (37.0-80.0); Platelet Count (auto) 209 10^3/uL (140-450); Red Cell Distribution Width 15.2 % (11.8-14.3); White Blood Cell 9.5 10^3/uL (4.4-10.8)
[2021-03-13] MEDS: NYSTATIN (MOUTH-THROAT) 500,000 UNITS/5 ML SUSP MT SCH ×4 (05:17→21:44)
[2021-03-13] MEDS: SALINE 0.65 % NASAL SPRAY 45ML BOTTLE EACHNOSTRI SCH ×4 (05:17→21:44)
[2021-03-13 05:37] LABS: Potassium 4.4 mmol/L (3.5-5.1)
[2021-03-13 05:47] LABS: Albumin 1.4 g/dL (3.4-5.0); BUN/Creatinine Ratio 36.3; Bilirubin, Total 0.5 mg/dL (0.2-1.0); Calcium 7.4 mg/dL (8.5-10.1); Total Protein 4.2 g/dL (6.4-8.2)
[2021-03-13] MEDS: ASPirin 81 mg TAB PO SCH (09:47)
[2021-03-13] MEDS: MICAFUNGIN SODIUM 100 MG in SODIUM CHL 0.9% 100 ML IV SCH (09:48)
[2021-03-13] MEDS: VORICONAZOLE 50 MG TAB PO SCH ×2 (09:48→20:57)
[2021-03-13] MEDS: Ensure HIGH Protein Chocolate 8oz Bottle PO SCH ×3 (09:50→17:48)
[2021-03-13] MEDS: levoFLOXacin 500MG 100 ML IV SCH (13:09)
[2021-03-13] MEDS ORDERED: LACTULOSE 20Gm/30ML SOLN PO ONE (13:30)
[2021-03-13] MEDS: DOCUSATE SOD 100 MG CAP PO SCH ×2 (13:55→21:44)
[2021-03-14 05:00] VITALS: BP 134/63
[2021-03-14] MEDS: NYSTATIN (MOUTH-THROAT) 500,000 UNITS/5 ML SUSP MT SCH ×4 (05:54→21:45)
[2021-03-14] MEDS: SALINE 0.65 % NASAL SPRAY 45ML BOTTLE EACHNOSTRI SCH ×4 (05:54→21:47)
[2021-03-14 06:21] LABS: Potassium 3.8 mmol/L (3.5-5.1)
[2021-03-14 06:32] LABS: Albumin 1.5 g/dL (3.4-5.0); BUN/Creatinine Ratio 35.2; Bilirubin, Total 1.2 mg/dL (0.2-1.0); Calcium 7.7 mg/dL (8.5-10.1); Total Protein 4.5 g/dL (6.4-8.2)
[2021-03-14] MEDS: Ensure HIGH Protein Chocolate 8oz Bottle PO SCH ×3 (08:00→18:00)
[2021-03-14] MEDS: traMADol HCL 50 MG TAB PO PRN ×2 (08:15→17:33)
[2021-03-14 09:00] VITALS: BP 140/63
[2021-03-14] MEDS: DOCUSATE SOD 100 MG CAP PO SCH ×2 (10:40→21:45)
[2021-03-14] MEDS: MICAFUNGIN SODIUM 100 MG in SODIUM CHL 0.9% 100 ML IV SCH (10:41)
[2021-03-14] MEDS: ASPirin 81 mg TAB PO SCH (10:41)
[2021-03-14] MEDS: VORICONAZOLE 50 MG TAB PO SCH ×2 (10:41→20:02)
[2021-03-14] MEDS: SODIUM CHLORIDE 0.9% 1,000 ML IV SCH (10:42)
[2021-03-14 13:00] VITALS: BP 128/61
[2021-03-14] MEDS: levoFLOXacin 500MG 100 ML IV SCH (13:42)
[2021-03-14 16:45] VITALS: BP 132/55
[2021-03-14 22:21] VITALS: BP 126/56
[2021-03-15 04:53] VITALS: BP 128/58
[2021-03-15] MEDS: NYSTATIN (MOUTH-THROAT) 500,000 UNITS/5 ML SUSP MT SCH ×4 (05:30→20:35)
[2021-03-15] MEDS: SALINE 0.65 % NASAL SPRAY 45ML BOTTLE EACHNOSTRI SCH ×4 (05:41→20:35)
[2021-03-15] MEDS: traMADol HCL 50 MG TAB PO PRN (05:41)
[2021-03-15] MEDS: Ensure HIGH Protein Chocolate 8oz Bottle PO SCH ×3 (08:10→18:02)
[2021-03-15 08:30] VITALS: BP 148/62
[2021-03-15] MEDS: DOCUSATE SOD 100 MG CAP PO SCH ×2 (09:32→20:35)
[2021-03-15] MEDS: VORICONAZOLE 50 MG TAB PO SCH ×2 (09:32→20:35)
[2021-03-15] MEDS: ASPirin 81 mg TAB PO SCH (09:32)
[2021-03-15] MEDS: MICAFUNGIN SODIUM 100 MG in SODIUM CHL 0.9% 100 ML IV SCH (10:54)
[2021-03-15 12:30] VITALS: BP 121/57
[2021-03-15] MEDS: levoFLOXacin 500MG 100 ML IV SCH (15:29)
[2021-03-15 16:57] VITALS: BP 123/59
[2021-03-15 21:32] VITALS: BP 122/51
[2021-03-15] MEDS: ALBUTEROL SULF 2.5 MG/0.5ML(0.5%) NEB SOLN NEB PRN (23:42)
[2021-03-16 01:18] VITALS: BP 122/51
[2021-03-16] MEDS: ONDANSETRON HCL 4 MG/2 ML VIAL IV PRN ×2 (03:27→09:37)
[2021-03-16] MEDS: NYSTATIN (MOUTH-THROAT) 500,000 UNITS/5 ML SUSP MT SCH ×4 (05:13→20:34)
[2021-03-16] MEDS: SALINE 0.65 % NASAL SPRAY 45ML BOTTLE EACHNOSTRI SCH ×4 (05:13→20:33)
[2021-03-16 05:20] VITALS: BP 136/56
[2021-03-16 06:06] LABS: Basophils # (auto) 0 10 ^3/uL (0-0.2); Basophils % (auto) 0.3 % (0.0-2.0); Eosinophils # (auto) 0 10 ^3/uL (0-0.8); Eosinophils % (auto) 0.3 % (0.0-7.0); Hematocrit 29.6 % (41.0-53.0); Lymphocytes # (auto) 0.6 10 ^3/uL (0.4-5.4); Lymphocytes % (auto) 4.1 % (10.0-50.0); Mean Corpuscular Hemoglobin 27.6 pg (28.0-32.0); Mean Corpuscular Hgb Conc. 33.7 g/dL (32.0-36.0); Mean Corpuscular Volume 81.8 fL (80.0-100.0); Monocytes # (auto) 0.6 10 ^3/uL (0-1.3); Monocytes % (auto) 4.6 % (0.0-12.0); Neutrophils # (auto) 12.6 10 ^3/uL (1.6-8.6); Neutrophils % (auto) 90.7 % (37.0-80.0); Nucleated Red Blood Cells % 0.1 %; Platelet Count (auto) 240 10^3/uL (140-450); Red Blood Cells 3.62 10^6/uL (4.5-5.90); Red Cell Distribution Width 15.6 % (11.8-14.3); White Blood Cell 13.9 10^3/uL (4.4-10.8)
[2021-03-16 06:25] LABS: Potassium 4.3 mmol/L (3.5-5.1)
[2021-03-16 06:34] LABS: Albumin 1.4 g/dL (3.4-5.0); BUN/Creatinine Ratio 32.1; Calcium 7.7 mg/dL (8.5-10.1); Total Protein 4.6 g/dL (6.4-8.2)
[2021-03-16 08:25] VITALS: BP 122/56
[2021-03-16] MEDS: Ensure HIGH Protein Chocolate 8oz Bottle PO SCH ×3 (09:29→17:26)
[2021-03-16] MEDS: VORICONAZOLE 50 MG TAB PO SCH ×2 (09:29→20:35)
[2021-03-16] MEDS: DOCUSATE SOD 100 MG CAP PO SCH ×2 (09:30→20:34)
[2021-03-16] MEDS: MICAFUNGIN SODIUM 100 MG in SODIUM CHL 0.9% 100 ML IV SCH (09:30)
[2021-03-16] MEDS: ASPirin 81 mg TAB PO SCH (09:30)
[2021-03-16] MEDS: ALBUTEROL SULF 2.5 MG/0.5ML(0.5%) NEB SOLN NEB PRN ×2 (12:12→18:41)
[2021-03-16] MEDS ORDERED: LACTULOSE 20Gm/30ML SOLN PO PRN (12:15)
[2021-03-16] MEDS ORDERED: methylPREDNISolone SOD SUCC 40 MG/ML VL IV ONE (12:15)
[2021-03-16] MEDS ORDERED: LACTULOSE 20Gm/30ML SOLN PO ONE (12:15)
[2021-03-16 12:30] VITALS: BP 119/54
[2021-03-16] MEDS ORDERED: PANTOPRAZOLE 40 MG/10 ML VIAL INJ IV ONE (12:30)
[2021-03-16] MEDS: levoFLOXacin 500MG 100 ML IV SCH (13:21)
[2021-03-16 17:20] VITALS: BP 133/61
[2021-03-16] MEDS: ACYCLOVIR SOD 50MG/ML 500 MG in D5W 5% 100 ML IV SCH ×2 (17:25→21:47)
[2021-03-16] MEDS: methylPREDNISolone SOD SUCC 40 MG/ML VL IV SCH (20:34)
[2021-03-16 22:00] VITALS: BP_SYST 114; BP_SYST 119; BP_DIAS 63; BP_DIAS 73
[2021-03-17] MEDS: ACYCLOVIR SOD 50MG/ML 500 MG in D5W 5% 100 ML IV SCH ×3 (04:44→20:30)
[2021-03-17] MEDS: NYSTATIN (MOUTH-THROAT) 500,000 UNITS/5 ML SUSP MT SCH ×4 (04:45→20:30)
[2021-03-17] MEDS: SALINE 0.65 % NASAL SPRAY 45ML BOTTLE EACHNOSTRI SCH ×4 (04:45→20:29)
[2021-03-17 05:00] VITALS: BP 137/65
[2021-03-17 08:40] VITALS: BP 123/55
[2021-03-17] MEDS: MICAFUNGIN SODIUM 100 MG in SODIUM CHL 0.9% 100 ML IV SCH (09:25)
[2021-03-17] MEDS: ASPirin 81 mg TAB PO SCH (09:26)
[2021-03-17] MEDS: PANTOPRAZOLE 40 MG/10 ML VIAL INJ IV SCH (09:26)
[2021-03-17] MEDS: methylPREDNISolone SOD SUCC 40 MG/ML VL IV SCH ×2 (09:26→20:29)
[2021-03-17] MEDS: DOCUSATE SOD 100 MG CAP PO SCH ×2 (09:26→20:30)
[2021-03-17] MEDS: VORICONAZOLE 50 MG TAB PO SCH (09:26)
[2021-03-17] MEDS: Ensure HIGH Protein Chocolate 8oz Bottle PO SCH ×3 (09:26→18:00)
[2021-03-17] MEDS: levoFLOXacin 500MG 100 ML IV SCH (12:36)
[2021-03-17 12:38] VITALS: BP 126/55
[2021-03-17 16:36] VITALS: BP 112/50
[2021-03-17] MEDS: SUCRALFATE 1 GM/10 ML ORAL SUSP PO SCH (18:02)
[2021-03-17 22:00] VITALS: BP 129/59
[2021-03-17] MEDS: traMADol HCL 50 MG TAB PO PRN (23:33)
[2021-03-18] MEDS: SALINE 0.65 % NASAL SPRAY 45ML BOTTLE EACHNOSTRI SCH ×4 (04:38→22:14)
[2021-03-18] MEDS: NYSTATIN (MOUTH-THROAT) 500,000 UNITS/5 ML SUSP MT SCH ×4 (04:38→22:14)
[2021-03-18] MEDS: SUCRALFATE 1 GM/10 ML ORAL SUSP PO SCH ×3 (04:38→18:15)
[2021-03-18] MEDS: methylPREDNISolone SOD SUCC 40 MG/ML VL IV SCH ×2 (04:38→22:14)
[2021-03-18] MEDS: ACYCLOVIR SOD 50MG/ML 500 MG in D5W 5% 100 ML IV SCH ×3 (04:39→22:15)
[2021-03-18 05:00] VITALS: BP 142/58
[2021-03-18] MEDS: ALBUTEROL SULF 2.5 MG/0.5ML(0.5%) NEB SOLN NEB PRN (06:28)
[2021-03-18 06:50] LABS: Basophils # (auto) 0.1 10 ^3/uL (0-0.2); Basophils % (auto) 0.3 % (0.0-2.0); Eosinophils # (auto) 0 10 ^3/uL (0-0.8); Hematocrit 29.1 % (41.0-53.0); Hemoglobin 9.8 g/dL (13.5-17.5); Lymphocytes # (auto) 0.5 10 ^3/uL (0.4-5.4); Lymphocytes % (auto) 2.8 % (10.0-50.0); Mean Corpuscular Hemoglobin 27.3 pg (28.0-32.0); Mean Corpuscular Hgb Conc. 33.9 g/dL (32.0-36.0); Mean Corpuscular Volume 80.7 fL (80.0-100.0); Monocytes # (auto) 0.5 10 ^3/uL (0-1.3); Monocytes % (auto) 2.8 % (0.0-12.0); Neutrophils # (auto) 18.3 10 ^3/uL (1.6-8.6); Neutrophils % (auto) 94.1 % (37.0-80.0); Platelet Count (auto) 277 10^3/uL (140-450); Red Cell Distribution Width 15.5 % (11.8-14.3); White Blood Cell 19.4 10^3/uL (4.4-10.8)
[2021-03-18 07:04] LABS: Calcium 7.7 mg/dL (8.5-10.1); Potassium 4.3 mmol/L (3.5-5.1)
[2021-03-18 07:11] LABS: Albumin 1.6 g/dL (3.4-5.0); BUN/Creatinine Ratio 32.4; Bilirubin, Total 0.9 mg/dL (0.2-1.0); Total Protein 4.7 g/dL (6.4-8.2)
[2021-03-18 08:00] VITALS: BP 135/62
[2021-03-18] MEDS: Ensure HIGH Protein Chocolate 8oz Bottle PO SCH ×3 (08:00→18:17)
[2021-03-18 08:16] VITALS: BP 144/81
[2021-03-18] MEDS: ASPirin 81 mg TAB PO SCH (10:13)
[2021-03-18] MEDS: DOCUSATE SOD 100 MG CAP PO SCH ×2 (10:13→22:13)
[2021-03-18] MEDS: PANTOPRAZOLE 40 MG/10 ML VIAL INJ IV SCH (10:13)
[2021-03-18] MEDS: MICAFUNGIN SODIUM 100 MG in SODIUM CHL 0.9% 100 ML IV SCH (10:13)
[2021-03-18 12:38] VITALS: BP 122/58
[2021-03-18] MEDS: levoFLOXacin 500MG 100 ML IV SCH (12:41)
[2021-03-18 16:26] VITALS: BP 146/72
[2021-03-18 22:00] VITALS: BP 141/65
[2021-03-19 00:56] VITALS: BP 141/65
[2021-03-19 05:00] VITALS: BP 136/71
[2021-03-19] MEDS: NYSTATIN (MOUTH-THROAT) 500,000 UNITS/5 ML SUSP MT SCH ×4 (06:17→22:33)
[2021-03-19] MEDS: SALINE 0.65 % NASAL SPRAY 45ML BOTTLE EACHNOSTRI SCH ×4 (06:17→22:32)
[2021-03-19] MEDS: SUCRALFATE 1 GM/10 ML ORAL SUSP PO SCH ×3 (06:17→18:54)
[2021-03-19] MEDS: ACYCLOVIR SOD 50MG/ML 500 MG in D5W 5% 100 ML IV SCH ×3 (06:17→22:33)
[2021-03-19 08:00] VITALS: BP 128/58
[2021-03-19] MEDS: Ensure HIGH Protein Chocolate 8oz Bottle PO SCH ×3 (08:00→18:00)
[2021-03-19] MEDS: DOCUSATE SOD 100 MG CAP PO SCH ×2 (09:58→22:33)
[2021-03-19] MEDS: PANTOPRAZOLE 40 MG/10 ML VIAL INJ IV SCH (09:58)
[2021-03-19] MEDS: MICAFUNGIN SODIUM 100 MG in SODIUM CHL 0.9% 100 ML IV SCH (09:58)
[2021-03-19] MEDS: methylPREDNISolone SOD SUCC 40 MG/ML VL IV SCH ×2 (09:58→22:33)
[2021-03-19] MEDS: ASPirin 81 mg TAB PO SCH (09:58)
[2021-03-19] MEDS ORDERED: POTASSIUM EFFERVESENT TAB 25 MEQ PO ONE (12:00)
[2021-03-19] MEDS ORDERED: FUROSEMIDE 20 MG/2 ML VIAL IV ONE (12:00)
[2021-03-19] MEDS: levoFLOXacin 500MG 100 ML IV SCH (12:14)
[2021-03-19 12:22] VITALS: BP 127/61
[2021-03-19 17:20] VITALS: BP 140/71
[2021-03-19 22:00] VITALS: BP 157/69
[2021-03-20 05:00] VITALS: BP 101/57
[2021-03-20 05:28] VITALS: BP 101/51
[2021-03-20] MEDS: SUCRALFATE 1 GM/10 ML ORAL SUSP PO SCH ×3 (06:13→18:00)
[2021-03-20] MEDS: NYSTATIN (MOUTH-THROAT) 500,000 UNITS/5 ML SUSP MT SCH ×4 (06:13→23:30)
[2021-03-20] MEDS: ACYCLOVIR SOD 50MG/ML 500 MG in D5W 5% 100 ML IV SCH ×3 (06:13→23:30)
[2021-03-20] MEDS: SALINE 0.65 % NASAL SPRAY 45ML BOTTLE EACHNOSTRI SCH ×4 (06:13→23:29)
[2021-03-20] MEDS: ALBUTEROL SULF 2.5 MG/0.5ML(0.5%) NEB SOLN NEB PRN (07:30)
[2021-03-20 09:00] VITALS: BP 105/42
[2021-03-20] MEDS: MICAFUNGIN SODIUM 100 MG in SODIUM CHL 0.9% 100 ML IV SCH (09:13)
[2021-03-20] MEDS: Ensure HIGH Protein Chocolate 8oz Bottle PO SCH ×3 (09:15→18:00)
[2021-03-20] MEDS: DOCUSATE SOD 100 MG CAP PO SCH ×2 (09:45→23:30)
[2021-03-20] MEDS: PANTOPRAZOLE 40 MG/10 ML VIAL INJ IV SCH (09:45)
[2021-03-20] MEDS: ASPirin 81 mg TAB PO SCH (09:45)
[2021-03-20] MEDS: methylPREDNISolone SOD SUCC 40 MG/ML VL IV SCH (09:45)
[2021-03-20] MEDS: levoFLOXacin 500MG 100 ML IV SCH (12:00)
[2021-03-20 13:00] VITALS: BP 126/54
[2021-03-20] MEDS ORDERED: cefTAZidime 1 GM in SODIUM CHL 0.9% 50 ML IV ONE (14:30)
[2021-03-20 17:00] VITALS: BP 125/51
[2021-03-20 20:37] LABS: % Iron Saturation 23.5 % (20-55)
[2021-03-20 22:40] VITALS: BP 119/39
[2021-03-20] MEDS: cefTAZidime 1 GM in SODIUM CHL 0.9% 50 ML IV SCH (23:29)
[2021-03-20] MEDS: LINEZOLID 600MG/300ML 300 ML IV SCH (23:30)
[2021-03-21] MEDS: traMADol HCL 50 MG TAB PO PRN (05:15)
[2021-03-21 05:26] VITALS: BP 127/56
[2021-03-21] MEDS: SALINE 0.65 % NASAL SPRAY 45ML BOTTLE EACHNOSTRI SCH ×4 (05:43→22:36)
[2021-03-21] MEDS: cefTAZidime 1 GM in SODIUM CHL 0.9% 50 ML IV SCH ×3 (05:43→22:36)
[2021-03-21] MEDS: NYSTATIN (MOUTH-THROAT) 500,000 UNITS/5 ML SUSP MT SCH ×4 (05:44→22:38)
[2021-03-21] MEDS: ACYCLOVIR SOD 50MG/ML 500 MG in D5W 5% 100 ML IV SCH ×3 (05:44→22:37)
[2021-03-21 05:51] LABS: Basophils # (auto) 0 10 ^3/uL (0-0.2); Eosinophils # (auto) 0 10 ^3/uL (0-0.8); Hematocrit 26.3 % (41.0-53.0); Hemoglobin 8.9 g/dL (13.5-17.5); Lymphocytes % (auto) 4.6 % (10.0-50.0); Mean Corpuscular Hemoglobin 27.3 pg (28.0-32.0); Mean Corpuscular Hgb Conc. 33.7 g/dL (32.0-36.0); Mean Corpuscular Volume 80.8 fL (80.0-100.0); Monocytes # (auto) 0.5 10 ^3/uL (0-1.3); Monocytes % (auto) 2.4 % (0.0-12.0); Neutrophils # (auto) 19.6 10 ^3/uL (1.6-8.6); Nucleated Red Blood Cells % 0.1 %; Platelet Count (auto) 262 10^3/uL (140-450); Red Blood Cells 3.26 10^6/uL (4.5-5.90); Red Cell Distribution Width 14.9 % (11.8-14.3); White Blood Cell 21.1 10^3/uL (4.4-10.8)
[2021-03-21 06:13] LABS: Potassium 4.2 mmol/L (3.5-5.1)
[2021-03-21 06:19] LABS: Albumin 1.5 g/dL (3.4-5.0); BUN/Creatinine Ratio 42.3; Calcium 7.5 mg/dL (8.5-10.1); Total Protein 4.4 g/dL (6.4-8.2)
[2021-03-21 08:57] VITALS: BP 124/53
[2021-03-21] MEDS: SUCRALFATE 1 GM/10 ML ORAL SUSP PO SCH ×3 (08:59→18:19)
[2021-03-21] MEDS: Ensure HIGH Protein Chocolate 8oz Bottle PO SCH ×3 (09:00→18:18)
[2021-03-21] MEDS: PANTOPRAZOLE 40 MG/10 ML VIAL INJ IV SCH (10:09)
[2021-03-21] MEDS: MICAFUNGIN SODIUM 100 MG in SODIUM CHL 0.9% 100 ML IV SCH (10:09)
[2021-03-21] MEDS: LINEZOLID 600MG/300ML 300 ML IV SCH ×2 (10:10→22:37)
[2021-03-21] MEDS: DOCUSATE SOD 100 MG CAP PO SCH ×2 (10:10→22:38)
[2021-03-21] MEDS: ASPirin 81 mg TAB PO SCH (10:10)
[2021-03-21] MEDS: predniSONE 20 MG TAB PO SCH (10:11)
[2021-03-21] MEDS: FLORASTOR (S. BOULARDII) 250 MG CAP PO SCH (11:36)
[2021-03-21 12:39] VITALS: BP 130/66
[2021-03-21 16:38] VITALS: BP 127/58
[2021-03-21 22:00] VITALS: BP 138/56
[2021-03-22] VITALS (7 sets, daily range): BP systolic 124–143; BP diastolic 48–68
[2021-03-22 06:39] LABS: Basophils # (auto) 0 10 ^3/uL (0-0.2); Eosinophils # (auto) 0 10 ^3/uL (0-0.8); Hemoglobin 7.9 g/dL (13.5-17.5); Lymphocytes # (auto) 0.7 10 ^3/uL (0.4-5.4); Monocytes # (auto) 0.5 10 ^3/uL (0-1.3)
[2021-03-22 06:41] LABS: Basophils % (auto) 0.2 % (0.0-2.0); Eosinophils % (auto) 0.2 % (0.0-7.0); Hematocrit 23.7 % (41.0-53.0); Mean Corpuscular Hemoglobin 27.2 pg (28.0-32.0); Mean Corpuscular Hgb Conc. 33.4 g/dL (32.0-36.0); Mean Corpuscular Volume 81.4 fL (80.0-100.0); Monocytes % (auto) 2.9 % (0.0-12.0); Neutrophils # (auto) 17.1 10 ^3/uL (1.6-8.6); Neutrophils % (auto) 92.7 % (37.0-80.0); Platelet Count (auto) 258 10^3/uL (140-450); Red Blood Cells 2.91 10^6/uL (4.5-5.90); Red Cell Distribution Width 14.7 % (11.8-14.3); White Blood Cell 18.4 10^3/uL (4.4-10.8)
[2021-03-22 06:54] LABS: Calcium 7.6 mg/dL (8.5-10.1); Potassium 3.8 mmol/L (3.5-5.1)
[2021-03-22] MEDS: ACYCLOVIR SOD 50MG/ML 500 MG in D5W 5% 100 ML IV SCH ×3 (06:56→22:01)
[2021-03-22] MEDS: SALINE 0.65 % NASAL SPRAY 45ML BOTTLE EACHNOSTRI SCH ×4 (06:56→22:01)
[2021-03-22] MEDS: cefTAZidime 1 GM in SODIUM CHL 0.9% 50 ML IV SCH ×3 (06:56→22:30)
[2021-03-22] MEDS: NYSTATIN (MOUTH-THROAT) 500,000 UNITS/5 ML SUSP MT SCH ×4 (06:56→22:02)
[2021-03-22] MEDS: Ensure HIGH Protein Chocolate 8oz Bottle PO SCH ×3 (08:00→18:00)
[2021-03-22] MEDS: DOCUSATE SOD 100 MG CAP PO SCH ×2 (10:32→22:02)
[2021-03-22] MEDS: MICAFUNGIN SODIUM 100 MG in SODIUM CHL 0.9% 100 ML IV SCH (10:32)
[2021-03-22] MEDS: PANTOPRAZOLE 40 MG/10 ML VIAL INJ IV SCH (10:32)
[2021-03-22] MEDS: predniSONE 20 MG TAB PO SCH (10:33)
[2021-03-22] MEDS: FLORASTOR (S. BOULARDII) 250 MG CAP PO SCH (10:33)
[2021-03-22] MEDS: ASPirin 81 mg TAB PO SCH (10:33)
[2021-03-22] MEDS: LINEZOLID 600MG/300ML 300 ML IV SCH ×2 (12:19→20:04)
[2021-03-22] MEDS: SUCRALFATE 1 GM/10 ML ORAL SUSP PO SCH ×2 (12:19→16:39)
[2021-03-22] MEDS: traMADol HCL 50 MG TAB PO PRN (22:00)
[2021-03-23 04:00] VITALS: BP 128/58
[2021-03-23] MEDS: traMADol HCL 50 MG TAB PO PRN (05:10)
[2021-03-23] MEDS: ACYCLOVIR SOD 50MG/ML 500 MG in D5W 5% 100 ML IV SCH ×2 (05:33→14:00)
[2021-03-23] MEDS: SALINE 0.65 % NASAL SPRAY 45ML BOTTLE EACHNOSTRI SCH ×2 (05:34→11:57)
[2021-03-23] MEDS: cefTAZidime 1 GM in SODIUM CHL 0.9% 50 ML IV SCH ×2 (06:43→14:00)
[2021-03-23] MEDS: SUCRALFATE 1 GM/10 ML ORAL SUSP PO SCH ×2 (06:44→11:57)
[2021-03-23] MEDS: NYSTATIN (MOUTH-THROAT) 500,000 UNITS/5 ML SUSP MT SCH ×2 (06:44→11:56)
[2021-03-23] MEDS: Ensure HIGH Protein Chocolate 8oz Bottle PO SCH ×2 (08:00→12:00)
[2021-03-23 09:00] VITALS: BP 124/53
[2021-03-23] MEDS: predniSONE 20 MG TAB PO SCH (09:46)
[2021-03-23] MEDS: PANTOPRAZOLE 40 MG/10 ML VIAL INJ IV SCH (09:46)
[2021-03-23] MEDS: FLORASTOR (S. BOULARDII) 250 MG CAP PO SCH (09:46)
[2021-03-23] MEDS: DOCUSATE SOD 100 MG CAP PO SCH (09:46)
[2021-03-23] MEDS: ASPirin 81 mg TAB PO SCH (09:46)
[2021-03-23] MEDS: MICAFUNGIN SODIUM 100 MG in SODIUM CHL 0.9% 100 ML IV SCH (09:47)
[2021-03-23] MEDS: LINEZOLID 600MG/300ML 300 ML IV SCH (11:57)
[2021-03-23 13:00] VITALS: BP 134/61
== END 2021-03-23 17:40 | disposition hospice, home (50) | DRG 193 ==
LOC: TELE-WESTW 13:32 → UNDOADMIN 13:41 → TELE-WESTW 13:41
PROVIDERS: ADMIT Internal Medicine; ATTEND Internal Medicine
DX: J18.9 Pneumonia, unspecified organism (principal); N17.0 Acute kidney failure with tubular necrosis; J96.21 Acute and chronic respiratory failure with hypoxia; B44.9 Aspergillosis, unspecified; E44.0 Moderate protein-calorie malnutrition; E87.0 Hyperosmolality and hypernatremia; E87.1 Hypo-osmolality and hyponatremia; I13.0 Hypertensive heart and chronic kidney disease with heart failure and stage 1 through stage 4 chronic kidney disease, or unspecified chronic kidney disease; J44.0 Chronic obstructive pulmonary disease with (acute) lower respiratory infection; Z66 Do not resuscitate; I48.91 Unspecified atrial fibrillation; N18.30 Chronic kidney disease, stage 3 unspecified; J44.9 Chronic obstructive pulmonary disease, unspecified; Z20.822 Contact with and (suspected) exposure to COVID-19; E83.19 Other disorders of iron metabolism; I25.10 Atherosclerotic heart disease of native coronary artery without angina pectoris; I50.9 Heart failure, unspecified; K76.0 Fatty (change of) liver, not elsewhere classified; R13.10 Dysphagia, unspecified; E78.5 Hyperlipidemia, unspecified; Z51.5 Encounter for palliative care; Z88.0 Allergy status to penicillin; Z82.49 Family history of ischemic heart disease and other diseases of the circulatory system; Z68.24 Body mass index [BMI] 24.0-24.9, adult
CPT/HCPCS: 36415; 36600; 71045; 71250; 76705; 80048; 80053; 81001; 82728; 82805; 82962; 83540; 83550; 85025; 85610; 85730; 87040; 87081; 87086; 87426; 94640; 97110; 97116; 97530; C9113; G0378; J1956; J2248; J2405; J3465; J7060